=== PATIENT | male | born 1985 | race Caucasian/White ===

== ENCOUNTER 2018-09-24 05:00 | Emergency (ER) | payer SELFPAY ==
[~2018-09-24] VITALS: Ht 185.4 cm; Wt 122.5 kg
[2018-09-24 05:05] VITALS: BP 150/110
--- NOTE | 2018-09-24 05:05 | NUR ---
TO BED # 8 AMBULATORY, REPORT GIVEN TO VALENTÍN MILLS
--- NOTE | 2018-09-24 05:16 | NUR ---
PATIENT PRESENTS TO ED WITH C/O LOWER ABD PAIN, FOR 2 DAYS, WITH TESTICULAR PAIN PT DENIES N/V/D; SKIN IS PINK/WARM/DRY; AAOX4 WITH EVEN AND STEADY GAIT; LUNGS CLEAR BL; HR EVEN AND REGULAR; PATIENT STATES PAIN OF 10/10 AT THIS TIME; VSS; PATIENT POSITIONED FOR COMFORT; HOB ELEVATED; BEDRAILS UP X2; BED DOWN. ER MD MADE AWARE OF PT STATUS.
[2018-09-24] MEDS ORDERED: KETOROLAC 30 MG/ML VIAL IM ONE (05:20)
--- NOTE | 2018-09-24 05:34 | NUR ---
PT TAKEN TO CT
--- NOTE | 2018-09-24 05:45 | NUR ---
PT RETURNED FROM CT IN STABLE CONDITION.
--- NOTE | 2018-09-24 06:05 | NUR ---
Dr. Martinez evaluating patient at bedside.
[2018-09-24 06:25] VITALS: BP 148/92
--- NOTE | 2018-09-24 06:25 | NUR ---
Patient discharged with v/s stable. Written and verbal after care instructions given and explained. Patient alert, oriented and verbalized understanding of instructions. Ambulatory with steady gait. All questions addressed prior to discharge. ID band removed. Patient advised to follow up with PMD. Rx of HCTZ, IBUPROFEN, AND FLEXERIL given. Patient educated on indication of medication including possible reaction and side effects. Opportunity to ask questions provided and answered.
== END 2018-09-24 06:25 | disposition home or self-care (01) ==
LOC: MED 05:00
DX: M54.5 Low back pain (principal); I10 Essential (primary) hypertension
CPT/HCPCS: 74176; 96372; 99284; J1885